=== PATIENT | female | born 1935 | race Two or more races ===

== ENCOUNTER 2022-12-01 07:35 | Outpatient (CLI) | payer OTHER | END 2022-12-01 07:38 | disposition home or self-care (01) | LOC: NUCLEAR 07:35 | PROVIDERS: ATTEND Internal Medicine | DX: I87.2 Venous insufficiency (chronic) (peripheral) (principal) ==

== ENCOUNTER 2022-12-16 10:31 | Outpatient (CLI) | payer OTHER | END 2022-12-16 10:40 | disposition home or self-care (01) | LOC: NUCLEAR 10:31 | PROVIDERS: ATTEND Internal Medicine | DX: I70.213 Atherosclerosis of native arteries of extremities with intermittent claudication, bilateral legs (principal); E11.69 Type 2 diabetes mellitus with other specified complication; I11.9 Hypertensive heart disease without heart failure ==